=== PATIENT | male | born 1995 | race Two or more races ===

== ENCOUNTER 2024-11-20 04:52 | Emergency (ER) | payer OTHER ==
[~2024-11-20] VITALS: Ht 190.5 cm; Wt 110.2 kg
[2024-11-20] MEDS ORDERED: ACETAMINOPHEN 500 MG GEL..CAP PO STA (06:10)
[2024-11-20] MEDS ORDERED: KETOROLAC TROMETHAMINE 60 MG VIAL IM STA (06:10)
== END 2024-11-20 07:33 | disposition home or self-care (01) ==
LOC: ER 04:52
DX: S60.011A Contusion of right thumb without damage to nail, initial encounter (principal); W19.XXXA Unspecified fall, initial encounter; Y93.89 Activity, other specified; Y92.89 Other specified places as the place of occurrence of the external cause; Y99.8 Other external cause status